=== PATIENT | male | born 1965 | race Caucasian/White ===

== ENCOUNTER 2021-06-18 00:56 | Outpatient (CLI) | payer OTHER, SELFPAY ==
--- NOTE | 2021-06-18 | DI.MRI_ITS ---
Exam(s) MR UPPER JOINT RT WO CLINICAL HISTORY: [place] AUTH# [id number] RT SHOULDER PAIN INSTABILITY. TECHNIQUE: Multiplanar multisequence MRI was performed. COMPARISON: None FINDINGS: MR examination of the shoulder was performed according to the usual protocol. There is a minimal effusion of the glenohumeral joint. Minimal fluid in the subacromial subdeltoid b ursa. Bones and labrum: There are very prominent hypertrophic degenerative changes at the acromioclavicular joint with associated signal changes in the bone. There is a small subchondral cyst of the greater tuberosity of the humerus. Glenoid labrum appears intact. Rotator cuff: Supraspinatus myotendinous junction region is impinged by hypertrophic AC joint change s as described above with mild signal abnormalities in this area. There also appears to be superior surface tear of the supraspinatus subjacent to the acromion which is about 12 by 3 by 3 millimeters i n size. More distally, there is Leela attachment tear which is full-thickness and measures up to abou t 10 by 3 by 9 millimeters. Subscapularis tendon appears intact except for its humeral attachment where there is mildly abnormal signal but no discrete tear period infraspinatus, and teres minor muscles and tendons show normal sig nal and no evidence of a tear. Rotator interval structures show abnormal signal without evidence of a discrete tear.. Biceps tendon and anchor: Biceps tendon and anchor show normal signal and no evidence of a tear. Joseluis ps tendon is normally positioned in the bicipital groove. There is a trace fluid in the biceps tendo n sheath. IMPRESSION: Rotator cuff tear involving predominantly supraspinatus tendon with tears at the mild tendinous junct ion region superior surface and at the humeral attachment as described above including full-thickness non retracted tearing at the supraspinatus footprint.. DATA REPOSITORY:
== END 2021-06-18 01:16 ==
PROVIDERS: Visit Provider Nurse Practitioner Primary Care
DX: M25.511 Pain in right shoulder (principal); M25.311 Other instability, right shoulder; M75.121 Complete rotator cuff tear or rupture of right shoulder, not specified as traumatic
CPT/HCPCS: 73221